=== PATIENT | male | born 1945 | race Caucasian/White ===

== ENCOUNTER → 2018-10-13 | Outpatient (CLI) | payer OTHER ==
[~2018-10-13] MED LIST: BP MEDS; TAMS-11 PO
[2018-10-13 14:27] LABS: BASOPHILS # (AUTO) 0.03 x10^3/uL (0-0.1); BASOPHILS % (AUTO) 0 % (0-1); EOSINOPHILS # (AUTO) 0.21 x10^3/uL (0-0.4); EOSINOPHILS % (AUTO) 2 % (1-7); LYMPHOCYTES # (AUTO) 2.72 x10^3/uL (1-3.4); LYMPHOCYTES % (AUTO) 29 % (22-44); MD NO; MEAN CORPUSCULAR HEMOGLOBIN 31.2 pg (27.5-34.5); MEAN CORPUSCULAR HGB CONC 33.8 g/dL (33.2-36.2); MEAN CORPUSCULAR VOLUME 92.3 fL (81-97); MEAN PLATELET VOLUME 7.8 fL (7.4-10.4); MONOCYTES # (AUTO) 0.85 x10^3/uL (0.2-0.8); MONOCYTES % (AUTO) 9 % (2-9); NEUTROPHILS % (AUTO) 60 % (42-75); PLATELET COUNT 345 x10^3/uL (130-400); RED BLOOD COUNT 4.86 x10^6/uL (4.38-5.82); RED CELL DISTRIBUTION WIDTH 12.7 % (9.4-14.8)
[2018-10-13 14:28] LABS: MICROSCOPIC AUTO
[2018-10-13 14:35] LABS: CULTURE INDICATED? YES
[2018-10-13 14:38] LABS: INTERNATIONAL NORMALIZED RATIO 1.06 (0.93-1.1); PROTHROMBIN TIME 11.2 Seconds (9.6-11.5)
[2018-10-13 14:39] LABS: ANION GAP 8 mmol/L (5-15); CHLORIDE 107 mmol/L (98-107)
[2018-10-13 14:43] LABS: ALANINE AMINOTRANSFERASE 24 U/L (12-78); ALKALINE PHOSPHATASE 75 U/L (45-117); BILIRUBIN,TOTAL 0.6 mg/dL (0.2-1.0); CREATININE 1.06 mg/dL (0.7-1.3); TOTAL PROTEIN 7.4 g/dL (6.4-8.2)
== END | disposition home or self-care (01) ==
LOC: STAR 12:57
PROVIDERS: ATTEND Orthopaedic Surgery Orthopaedic Surgery of the Spine
DX: Z01.818 Encounter for other preprocedural examination (principal); M43.16 Spondylolisthesis, lumbar region; R94.31 Abnormal electrocardiogram [ECG] [EKG]
CPT/HCPCS: 36415; 71046; 80053; 81001; 85025; 85610; 85730; 87086; 93005

== ENCOUNTER 2018-10-23 08:56 | Inpatient (IN) | payer OTHER ==
[~2018-10-23] VITALS: Ht 177.8 cm; Wt 89.8 kg
[2018-10-23] MEDS ORDERED: ACETAMINOPHEN 500 MG TABLET PO ONE (09:30)
[2018-10-23] MEDS ORDERED: GABAPENTIN 300 MG CAPSULE PO ONE (09:30)
[2018-10-23] MEDS ORDERED: MECL-76 PO (09:36)
[2018-10-23] MEDS ORDERED: ASPI-496 PO (09:36)
[2018-10-23] MEDS ORDERED: IBUP-1223 PO (09:36)
[2018-10-23] MEDS ORDERED: FINA5TAB4 PO (09:36)
[2018-10-23] MEDS ORDERED: GABA300C10 PO (09:36)
[2018-10-23] MEDS ORDERED: ACET80TA PO (09:36)
[2018-10-23] MEDS ORDERED: ESOM40CA PO (09:36)
[2018-10-23] MEDS ORDERED: CITA10SO PO (09:36)
[2018-10-23] MEDS ORDERED: SIMV20TA3 PO (09:36)
[2018-10-23] MEDS ORDERED: TRAM50TA2 PO (09:36)
[2018-10-23] MEDS ORDERED: AMLO10TA8 PO (09:36)
[2018-10-23] MEDS ORDERED: LACTATED RINGERS 1,000 ML IV SCH (10:14)
[2018-10-23] MEDS ORDERED: FENTANYL PF 250 MCG/5ML ONE (11:53)
[2018-10-23] MEDS ORDERED: MIDAZOLAM 1 MG/ML, 2ML ONE (11:53)
[2018-10-23] MEDS ORDERED: PROPOFOL 50 ML ONE ×2 (11:53→14:13)
[2018-10-23] MEDS ORDERED: THROMBIN 5,000 UNIT VIAL TP ONE (12:16)
[2018-10-23] MEDS ORDERED: LIDOCAINE/PF 0.5% ,50ML ONE (12:16)
[2018-10-23] MEDS ORDERED: EPINEPHRINE 1 MG/ML, 1ML ONE (12:17)
[2018-10-23] MEDS ORDERED: BUPIVACAINE/PF 0.25% ONE (12:17)
[2018-10-23] MEDS ORDERED: VANCOMYCIN 500 MG ONE (12:17)
[2018-10-23] MEDS ORDERED: VANCOMYCIN 1,000 MG ONE (12:17)
[2018-10-23] MEDS ORDERED: METOPROLOL 1 MG/ML, 5ML IV PRN (14:30)
[2018-10-23] MEDS ORDERED: MEPERIDINE/PF 25MG/0.5ML IVPush PRN (14:30)
[2018-10-23] MEDS ORDERED: hydrALAzine 20 MG/ML, 1ML IV PRN (14:30)
[2018-10-23] MEDS ORDERED: HYDROmorphone 2 MG/ML, 1ML IVPush PRN (14:30)
[2018-10-23] MEDS ORDERED: OXYcodone 5 MG/5 ML ORAL.SOL UDC PO PRN (14:30)
[2018-10-23] MEDS ORDERED: LABETALOL 5MG/ML, 20ML IV PRN (14:30)
[2018-10-23] MEDS ORDERED: METOCLOPRAMIDE 5 MG/ML, 2ML IV PRN (14:30)
[2018-10-23] MEDS ORDERED: LORazepam 2 MG/ML, 1ML IVPush PRN (14:30)
[2018-10-23] MEDS ORDERED: ONDANSETRON 2MG/ML, 2ML ONE (15:21)
[2018-10-23] MEDS ORDERED: PROPOFOL 10 MG/ML, 20ML ONE (15:21)
[2018-10-23] MEDS ORDERED: DEXAMETHASONE 4 MG/ML, 1ML ONE (15:21)
[2018-10-23] MEDS ORDERED: KETAMINE 10 MG/ML, 20ML ONE (15:21)
[2018-10-23] MEDS ORDERED: SUCCINYLCHOLINE 20 MG/ML, 10ML ONE (15:21)
[2018-10-23] MEDS ORDERED: CEFAZOLIN 1,000 MG ONE (15:21)
[2018-10-23] MEDS ORDERED: FENTANYL PF 100 MCG/2ML ONE (15:45)
[2018-10-23] MEDS ORDERED: OXYcodone 5 MG/5 ML ORAL.SOL UDC ONE (15:46)
[2018-10-23] MEDS: FENTANYL PF 100 MCG/2ML IV PRN ×2 (15:52→16:09)
[2018-10-23] MEDS ORDERED: PROMETHAZINE 25 MG/ML, 1ML IM PRN (17:30)
[2018-10-23] MEDS ORDERED: ONDANSETRON 2MG/ML, 2ML IV PRN (17:30)
[2018-10-23] MEDS ORDERED: MAGNESIUM HYDROXIDE 8%, 30ML UDC PO PRN (17:30)
[2018-10-23] MEDS ORDERED: HYDROcodone/APAP 10/325 MG TABLET PO PRN (17:30)
[2018-10-23] MEDS ORDERED: HYDROcodone/APAP 5/325 TABLET PO PRN (17:30)
[2018-10-23] MEDS ORDERED: morphine SULFATE 10 MG/ML, 1ML IV PRN (17:30)
[2018-10-23] MEDS ORDERED: BISACODYL 10 MG SUPP PR PRN (17:30)
[2018-10-23] MEDS ORDERED: [UNRECOGNIZED DRUG - REMARK] MC SCH (18:00)
[2018-10-23] MEDS ORDERED: METHOCARBAMOL 1,000 MG in DEXTROSE 5% 100 ML IV ONE (18:00)
[2018-10-23] MEDS: D5%-0.9% NACL+KCL 20MEQ 1,000 ML IV SCH (18:05)
[2018-10-23] MEDS: CEFAZOLIN PMX 1GM/50ML 50 ML IVPB SCH (18:05)
[2018-10-23] MEDS ORDERED: CITALOPRAM 10 MG TABLET PO PRN (19:00)
[2018-10-23 21:39] VITALS: BP 132/75
[2018-10-23] MEDS: GABAPENTIN 300 MG CAPSULE PO SCH (21:48)
[2018-10-23] MEDS: SIMVASTATIN 20 MG TABLET PO SCH (21:49)
[2018-10-23] MEDS: SENNA/DOCUSATE TABLET PO SCH (21:50)
[2018-10-24] MEDS: CEFAZOLIN PMX 1GM/50ML 50 ML IVPB SCH (02:04)
[2018-10-24] MEDS: METHOCARBAMOL 750 MG in DEXTROSE 5% 100 ML IV SCH ×3 (03:22→17:44)
[2018-10-24 03:25] VITALS: BP 132/75
[2018-10-24 05:22] LABS: BASOPHILS # (AUTO) 0.02 x10^3/uL (0-0.1); BASOPHILS % (AUTO) 0 % (0-1); EOSINOPHILS % (AUTO) 0 % (1-7); LYMPHOCYTES # (AUTO) 1.01 x10^3/uL (1-3.4); LYMPHOCYTES % (AUTO) 10 % (22-44); MD NO; MEAN CORPUSCULAR HGB CONC 34.1 g/dL (33.2-36.2); MEAN PLATELET VOLUME 7.6 fL (7.4-10.4); MONOCYTES # (AUTO) 0.98 x10^3/uL (0.2-0.8); MONOCYTES % (AUTO) 10 % (2-9); NEUTROPHILS # (AUTO) 7.89 x10^3/uL (1.8-6.8); NEUTROPHILS % (AUTO) 80 % (42-75); PLATELET COUNT 299 x10^3/uL (130-400); RED CELL DISTRIBUTION WIDTH 13.1 % (9.4-14.8)
[2018-10-24 05:27] LABS: ANION GAP 3 mmol/L (5-15); CALCIUM 7.9 mg/dL (8.5-10.1); CHLORIDE 111 mmol/L (98-107); CREATININE 0.91 mg/dL (0.7-1.3)
[2018-10-24] MEDS: ENOXAPARIN 30 MG/0.3 ML SQ SCH ×2 (06:17→18:15)
[2018-10-24] MEDS: D5%-0.9% NACL+KCL 20MEQ 1,000 ML IV SCH ×3 (06:22→23:30)
[2018-10-24 06:40] VITALS: BP 138/82
[2018-10-24] MEDS: GABAPENTIN 300 MG CAPSULE PO SCH ×3 (09:45→22:03)
[2018-10-24] MEDS: FINASTERIDE 5 MG TABLET PO SCH (09:46)
[2018-10-24] MEDS: TAMSULOSIN 0.4 MG CAP.ER.24H PO SCH (09:46)
[2018-10-24] MEDS: SENNA/DOCUSATE TABLET PO SCH ×2 (09:46→22:03)
[2018-10-24] MEDS: AMLODIPINE 5 MG TABLET PO SCH (09:46)
[2018-10-24 13:45] VITALS: BP 135/76
[2018-10-24 18:58] VITALS: BP 136/83
[2018-10-24] MEDS: SIMVASTATIN 20 MG TABLET PO SCH (22:03)
[2018-10-25] MEDS: METHOCARBAMOL 750 MG in DEXTROSE 5% 100 ML IV SCH ×2 (02:00→08:55)
[2018-10-25 02:17] VITALS: BP 126/71
[2018-10-25 05:54] LABS: BASOPHILS # (AUTO) 0.02 x10^3/uL (0-0.1); BASOPHILS % (AUTO) 0 % (0-1); EOSINOPHILS # (AUTO) 0.12 x10^3/uL (0-0.4); EOSINOPHILS % (AUTO) 2 % (1-7); LYMPHOCYTES # (AUTO) 2.13 x10^3/uL (1-3.4); LYMPHOCYTES % (AUTO) 29 % (22-44); MD NO; MEAN CORPUSCULAR HEMOGLOBIN 31.4 pg (27.5-34.5); MEAN CORPUSCULAR HGB CONC 34.4 g/dL (33.2-36.2); MEAN CORPUSCULAR VOLUME 91.3 fL (81-97); MEAN PLATELET VOLUME 7.8 fL (7.4-10.4); MONOCYTES # (AUTO) 0.98 x10^3/uL (0.2-0.8); MONOCYTES % (AUTO) 13 % (2-9); NEUTROPHILS # (AUTO) 4.05 x10^3/uL (1.8-6.8); NEUTROPHILS % (AUTO) 56 % (42-75); PLATELET COUNT 276 x10^3/uL (130-400); RED BLOOD COUNT 4.05 x10^6/uL (4.38-5.82); RED CELL DISTRIBUTION WIDTH 13.2 % (9.4-14.8)
[2018-10-25 05:56] LABS: CALCIUM 7.8 mg/dL (8.5-10.1); CHLORIDE 109 mmol/L (98-107)
[2018-10-25 05:59] LABS: ANION GAP 5 mmol/L (5-15); CREATININE 0.83 mg/dL (0.7-1.3)
[2018-10-25 08:53] VITALS: BP 145/76
[2018-10-25] MEDS: FINASTERIDE 5 MG TABLET PO SCH (08:54)
[2018-10-25] MEDS: AMLODIPINE 5 MG TABLET PO SCH (08:55)
[2018-10-25] MEDS: SENNA/DOCUSATE TABLET PO SCH (08:55)
[2018-10-25] MEDS: GABAPENTIN 300 MG CAPSULE PO SCH (08:55)
[2018-10-25] MEDS: TAMSULOSIN 0.4 MG CAP.ER.24H PO SCH (08:55)
[2018-10-25] MEDS: D5%-0.9% NACL+KCL 20MEQ 1,000 ML IV SCH (08:55)
[2018-10-25] MEDS ORDERED: SIMVASTATIN 20 MG TABLET PO SCH (09:00)
[2018-10-25] MEDS ORDERED: TRAM-47 PO (12:53)
[2018-10-26] MEDS ORDERED: METHOCARBAMOL 750 MG TABLET PO SCH (02:00)
== END 2018-10-25 13:15 | disposition home or self-care (01) | DRG 517 ==
LOC: ORIP 08:56 → 4NOR 17:05 → DCLOUNGE 10-25 13:05
PROVIDERS: ADMIT Orthopaedic Surgery Orthopaedic Surgery of the Spine; ATTEND Orthopaedic Surgery Orthopaedic Surgery of the Spine
PROC: 0SJ00ZZ Inspection of Lumbar Vertebral Joint, Open Approach (ICD-10-PCS; principal; 2018-10-23 11:00)
DX: M48.061 Spinal stenosis, lumbar region without neurogenic claudication (principal); M43.16 Spondylolisthesis, lumbar region; I10 Essential (primary) hypertension; N40.0 Benign prostatic hyperplasia without lower urinary tract symptoms; G89.29 Other chronic pain; K21.9 Gastro-esophageal reflux disease without esophagitis
CPT/HCPCS: 36415; 80048; 85025; 86850; 86900; C1713; G0378; J0171; J0690; J1100; J1650; J2001; J2250; J2270; J2405; J2704; J3010; J3370; J3490; C1762; J0330; J2800; J3480; J7120